=== PATIENT | male | born 1975 | race Caucasian/White ===

== ENCOUNTER 2019-01-27 00:58 | Emergency (ER) | payer MEDICAID ==
[~2019-01-27] VITALS: Ht 182.9 cm; Wt 79.4 kg
[~2019-01-27 00:58] MED LIST: ACETAMINOPHEN; ASPIRIN; CEPH500 PO; CLIN300 PO; CYCL10 PO; DOXY100 PO; DOXY100T53 PO; ERYT.5TO BOTHEYES; HYDACE5 PO; IBUPROFEN; NAPR500 PO; OXYACE5T PO; OXYACE7.5T PO; RXHYDACE PO; SULTRIDS PO
== END 2019-01-27 01:53 | disposition home or self-care (01) ==
LOC: ER 00:58
DX: S60.222A Contusion of left hand, initial encounter (principal); W22.8XXA Striking against or struck by other objects, initial encounter
CPT/HCPCS: 29125; 73130; 96372-59; 99283-25; J1885

== ENCOUNTER 2024-09-09 08:33 | Day surgery (SDC) | payer OTHER ==
[~2024-09-09] VITALS: Ht 177.8 cm; Wt 92.7 kg
[2024-09-09] VITALS (17 sets, daily range): BP systolic 98–136; BP diastolic 64–89
[~2024-09-09 08:33] MED LIST changes: +ACET500 PO; +Bupivacaine 0.5% Inj 10 ML Vial ONE; +IBUP800 PO; +LISI20 PO; +MELO7.5 PO; +propofoL 100 ML IV ONE
[2024-09-09] MEDS ORDERED: Ropivacaine 0.5% HCl/Pf 123.125 MG,EPINEPHrine HCL 0.25 MG,Ketorolac Tromethamine 15 MG... INFIL SCH (08:50)
[2024-09-09] MEDS ORDERED: Vancomycin HCL 1,000 MG in NS 250 ML IV SCH ×2 (08:50→22:00)
[2024-09-09] MEDS ORDERED: Chlorhexidine Mouth Care 15 ML UDC MT SCH (08:50)
[2024-09-09] MEDS ORDERED: Acetaminophen 500 MG Tab PO SCH ×2 (08:50→16:00)
[2024-09-09] MEDS ORDERED: OxyCODONE HCL 10 MG TABCR PO SCH ×2 (08:50)
[2024-09-09] MEDS ORDERED: Tranexamic Acid 100 ML IV SCH (08:50)
[2024-09-09] MEDS ORDERED: Lactated Ringer's 1,000 ML IV SCH ×2 (08:50→10:30)
[2024-09-09] MEDS ORDERED: CeFAZolin Sodium 2,000 MG in NS 100 ML IV SCH ×2 (08:50→19:15)
--- NOTE | 2024-09-09 09:09 | NUR ---
History, Chart, Medications and Allergies reviewed before start of procedure.pre op teaching done. friend at bedside
[2024-09-09] MEDS ORDERED: Bisacodyl 10 MG Supp PR PRN (10:25)
[2024-09-09] MEDS ORDERED: OxyCODONE HCL 5 MG TAB PO PRN ×2 (10:25→10:30)
[2024-09-09] MEDS ORDERED: DiphenhydrAMINE HCL 25 MG Cap PO PRN (10:25)
[2024-09-09] MEDS ORDERED: Promethazine HCl 25 MG Tab PO PRN (10:30)
[2024-09-09] MEDS ORDERED: HYDROmorphone HCl/Pf 1MG SYR IV PRN (10:30)
[2024-09-09] MEDS ORDERED: FLU VACC TS2024-25(6MOS UP)/PF 45 MCG/0.5 ML SYRINGE IM SCH (10:30)
[2024-09-09] MEDS ORDERED: Magnesium Hydroxide Conc 10 ML UDC PO PRN (10:30)
[2024-09-09] MEDS ORDERED: Metoclopramide HCl 5MG / ML 2ML Vial IV PRN (10:35)
[2024-09-09] MEDS ORDERED: Ondansetron HCl 2 MG / ML 2ML Vial IV PRN (10:35)
[2024-09-09] MEDS ORDERED: Vancomycin HCl 1000 MG ADDvantage ONE (10:50)
[2024-09-09] MEDS ORDERED: Dexamethasone Sod Phos 10 MG/ML 1ML VIAL ONE (11:13)
[2024-09-09] MEDS ORDERED: Ondansetron HCl 2 MG / ML 2ML Vial ONE (11:13)
[2024-09-09] MEDS ORDERED: Ketorolac Tromethamine 30mg Vial ONE (11:13)
--- NOTE | 2024-09-09 11:52 | NUR ---
09/09/24 1152 Ramila Edmondson SPINAL BLOCK COMPLETED BY DR. VALDEZ UPON ENTRY TO OR. VANCO 1GM IV STARTED PREOPERATIVELY IN DAY SURGERY.
[2024-09-09] MEDS ORDERED: Glycopyrrolate 0.2 MG/ML 5ML VIAL ONE (11:57)
[2024-09-09] MEDS ORDERED: Midazolam HCl 1MG / ML 2ML Vial ONE (12:00)
[2024-09-09] MEDS ORDERED: propofoL 20 ML IV ONE ×2 (12:32→13:00)
--- NOTE | 2024-09-09 14:48 | NUR ---
TRANSFER TO UNIT PATIENT TRANSFERRED TO UNIT FROM PACU AT APPROX 1430. PATIENT ALERT AND ORIENTED X4. COMMUNICATES NEEDS EFFECTIVELY. FOLLOWS COMMANDS APPROPRIATELY. VSS. ON ROOM AIR, SATs >90%. RR EVEN, UNLABORED. S/P R TKA - ANAND WRAP DRESSING C/D/I. DENIES PAIN. RECEIVED SPINAL - MINIMAL SENSATION TO BLE, ABLE TO MOVE TOES SOME. PPP. SMALL SNACKS PROVIDED - IVF INFUSING PER EMAR. CALL LIGHT IN REACH.
--- NOTE | 2024-09-09 16:01 | NUR ---
Pt. is awake in room and welcomes this work adjustment instructor's visit. Pt. is pleasant. Facilitated a life review/ Pt. verbalized how his francis was shaped through his experience in the [facility] system. Listen with empathy and interest. Rapport is established in the unpacking of our life experiences. Considered matters of francis and belief. Pt. displayed evidence of being encouraged and motivated to reconnect with a local francis community. Prayed with the Pt. Information about a local recovery ministry is shared with and received by the Pt. Pt. verbalized gratitude for the spiritual care visit.
--- NOTE | 2024-09-09 17:25 | NUR ---
SHIFT SUMMARY NO ACUTE CHANGES SINCE PREVIOUS DOCUMENTATION. VSS. PATIENT REMAINS ALERT AND ORIENTED X4. WORKED WITH PHYSICAL THERAPY THIS EVENING - CURRENTLY SITTING IN RECLINER CHAIR. IS A 1P FWW GB WITH MOBILITY. PAIN TOLERABLE PER EMAR AND WITH COOLING DEVICE. ANAND WRAP C/D/I - NO SHADOWING NOTED. TOLERATING PO INTAKE. IVF STOPPED. VOIDING. CALL LIGHT IN REACH. WILL CONTINUE TO MONITOR AND REPORT TO ONCOMING RN.
[2024-09-09] MEDS ORDERED: Lisinopril 20 MG Tab PO SCH (18:00)
[2024-09-09] MEDS ORDERED: Ketorolac Tromethamine 15mg Vial IV SCH (18:00)
[2024-09-09] MEDS ORDERED: Docusate Sodium 100 MG Cap PO SCH (21:00)
--- NOTE | 2024-09-10 04:24 | NUR ---
SHIFT SUMMARY NO ACUTE CHANGES OVERNIGHT. POD1 ELECTIVE RIGHT KNEE. PAIN MANAGED USING NPIS AND PER EMAR. UP TO BATHROOM WITH 1PA USING FWW. VOIDING WITHOUT DIFFICULTY. TOLERATING PO INTAKE. RIGHT KNEE WITH ANAND WRAP DRESSING, REMAINED C/D/I OVERNIGHT. RLE ELEVATED ON PILLOWS WITH CRYOTHERAPY OVERNIGHT. DANIELLE HOSE AND SCDS IN PLACE. PT ABLE TO REST DURING SHIFT. PT VOICED UNDERSTANDING OF PLAN OF CARE, DENIES QUESTIONS/CONCERNS AT THIS TIME.
[2024-09-10 04:28] VITALS: BP 145/96
[2024-09-10 05:25] LABS: BASOPHILS ABSOLUTE AUTO 0.02 K/mm3 (0.00-0.23); BASOPHILS PERCENT AUTO 0 % (0-2); EOSINOPHILS ABSOLUTE AUTO 0.01 K/mm3 (0.00-0.68); EOSINOPHILS PERCENT AUTO 0 % (0-6); Hematocrit 35.8 % (37.0-53.0); Hemoglobin 12.5 g/dL (13.5-17.5); IMMATURE GRAN ABSOLUTE AUTO 0.03 K/mm3 (0.00-0.10); IMMATURE GRAN PERCENT AUTO 0 % (0-1); LYMPHOCYTES ABSOLUTE AUTO 0.85 K/mm3 (0.84-5.20); LYMPHOCYTES PERCENT AUTO 10 % (21-46); MONOCYTES ABSOLUTE AUTO 0.73 K/mm3 (0.16-1.47); MONOCYTES PERCENT AUTO 8 % (4-13); Mean Corpuscular HGB 28.3 pg (26.0-34.0); Mean Corpuscular HGB Conc 34.9 g/dL (31.5-36.5); Mean Corpuscular Volume 81 fL (80-100); NEUTROPHILS ABSOLUTE AUTO 7.28 K/mm3 (1.96-9.15); NEUTROPHILS PERCENT AUTO 82 % (41-73); Platelet Count 265 K/mm3 (150-400); RDW Coefficient Variation 13.2 % (11.7-14.2); Red Blood Cell Count 4.42 M/mm3 (4.30-5.90); White Blood Cell Count 8.92 K/mm3 (4.00-11.30)
[2024-09-10 05:44] LABS: Calcium, Blood 8.3 mg/dL (8.5-10.1); Creatinine, Blood 1.06 mg/dL (0.60-1.20); Magnesium, Blood 2.1 mg/dL (1.6-2.4); Potassium, Blood 4.3 mmol/L (3.5-5.5)
--- NOTE | 2024-09-10 06:29 | NUR ---
DRESSING CHANGE DR. BELLAMY AT BEDSIDE. COMPLETED DRESSING CHANGE TO RIGHT KNEE. PT TOLERATED WELL.
[2024-09-10 07:43] VITALS: BP 152/96
[2024-09-10] MEDS ORDERED: Aspirin 81 MG Chew PO SCH (09:00)
[2024-09-10] MEDS ORDERED: Trimethoprim/Sulfamethoxazole DS Tab PO SCH (09:00)
[2024-09-10] MEDS ORDERED: Aspir 8181 MG PO (09:33)
[2024-09-10] MEDS ORDERED: OXAYDO5 M1 PO (09:34)
[2024-09-10] MEDS ORDERED: PROM25 PO (09:35)
[2024-09-10] MEDS ORDERED: SULTRIDS PO (09:35)
--- NOTE | 2024-09-10 10:45 | NUR ---
DISCHARGE SUMMARY PT DISCHARGE HOME TODAY VIA WHEELCHAIR TO PRIVATE AUTO. IV REMOVED, CATH INTACT. DISCHARGE INSTRUCTIONS AND PERSONAL BELONGINGS PROVIDED. PT TOLERATING PO INTAKE, DENIES N/V. AMBULATING WITH FWW. WORKED WITH THERAPY. PAIN MANAGED PER EMAR AND CRYO. PT VERBALIZED UNDERSTANDING OF INSTRUCTIONS AND DENIES NEEDS OR CONCERNS. PT OFF UNIT BY COLEEN.
[2024-09-11] MEDS ORDERED: OXAYDO5 M1 PO (11:34)
== END 2024-09-10 10:25 | disposition home or self-care (01) ==
LOC: ORSCMMR 08:33 → ORD 10:45 → SURS 14:33 → ORSCMMR 09-10 10:25
PROVIDERS: Orthopaedic Surgery
PROC: 0SRC0J9 Replacement of Right Knee Joint with Synthetic Substitute, Cemented, Open Approach (ICD-10-PCS; principal; 2024-09-09 10:45)
DX: M17.0 Bilateral primary osteoarthritis of knee (principal); I10 Essential (primary) hypertension; Z79.899 Other long term (current) drug therapy
CPT/HCPCS: 36415; 73560-RT; 80048; 83735; 85025; 97110; 97116; 97161; 97530; A9270; C1713; C1776; J0171; J0690; J0735; J1100; J1171; J1885; J2250; J2405; J2704; J2795; J3370; J7050; J7120

== ENCOUNTER 2024-09-28 09:54 | Emergency (ER) | payer OTHER ==
[~2024-09-28] VITALS: Ht 177.8 cm; Wt 83.9 kg
[~2024-09-28 09:54] MED LIST changes: +Aspir 8181 MG PO; -Bupivacaine 0.5% Inj 10 ML Vial ONE; +OXAYDO5 M1 PO; +PROM25 PO; -propofoL 100 ML IV ONE
[2024-09-28 10:44] VITALS: BP 159/115
[2024-09-28] MEDS ORDERED: HYDROmorphone HCl/Pf 1MG SYR IM ONE (10:50)
[2024-09-28] MEDS ORDERED: IBU800 MG PO (12:21)
== END 2024-09-28 12:24 | disposition home or self-care (01) ==
LOC: ER 09:54
DX: M25.561 Pain in right knee (principal); Z79.899 Other long term (current) drug therapy; Z79.82 Long term (current) use of aspirin
CPT/HCPCS: 73562-RT; 93971; 96372; 99284-25; J1171

== ENCOUNTER 2024-10-20 02:45 | Emergency (ER) | payer OTHER ==
[~2024-10-20] VITALS: Ht 180.3 cm; Wt 88.5 kg
[~2024-10-20 02:45] MED LIST changes: +IBU800 MG PO
[2024-10-20] MEDS ORDERED: Ondansetron HCl 2 MG / ML 2ML Vial IV PRN (03:05)
[2024-10-20 03:14] LABS: BASOPHILS ABSOLUTE AUTO 0.07 K/mm3 (0.00-0.23); BASOPHILS PERCENT AUTO 1 % (0-2); EOSINOPHILS ABSOLUTE AUTO 0.04 K/mm3 (0.00-0.68); EOSINOPHILS PERCENT AUTO 0 % (0-6); Hematocrit 39.8 % (37.0-53.0); Hemoglobin 13.8 g/dL (13.5-17.5); IMMATURE GRAN ABSOLUTE AUTO 0.04 K/mm3 (0.00-0.10); IMMATURE GRAN PERCENT AUTO 0 % (0-1); LYMPHOCYTES ABSOLUTE AUTO 1.05 K/mm3 (0.84-5.20); LYMPHOCYTES PERCENT AUTO 11 % (21-46); MONOCYTES ABSOLUTE AUTO 0.65 K/mm3 (0.16-1.47); MONOCYTES PERCENT AUTO 7 % (4-13); Mean Corpuscular HGB 28.3 pg (26.0-34.0); Mean Corpuscular HGB Conc 34.7 g/dL (31.5-36.5); Mean Corpuscular Volume 82 fL (80-100); Mean Platelet Volume 8.5 fL (9.1-12.4); NEUTROPHILS ABSOLUTE AUTO 7.42 K/mm3 (1.96-9.15); NEUTROPHILS PERCENT AUTO 80 % (41-73); Platelet Count 336 K/mm3 (150-400); RDW Coefficient Variation 13.2 % (11.7-14.2); RDW Standard Deviation 39.6 fL (35.1-46.3); Red Blood Cell Count 4.87 M/mm3 (4.30-5.90); White Blood Cell Count 9.27 K/mm3 (4.00-11.30)
[2024-10-20 03:42] LABS: Albumin, Blood 3.9 g/dL (3.4-5.0); Albumin/Globulin Ratio 1.1 (0.8-1.8); Bilirubin, Total 0.4 mg/dL (0.1-1.0); Bun/Creatinine Ratio 16.3 (12.0-20.0); Calcium, Blood 9.5 mg/dL (8.5-10.1); Creatinine, Blood 1.35 mg/dL (0.60-1.20); Globulin, Blood 3.6 g/dL (2.2-4.0); Total Protein, Blood 7.5 g/dL (6.4-8.2)
[2024-10-20] MEDS ORDERED: FentaNYL Citrate 50 MCG/ML 2 ML Injection IV ONE (04:30)
[2024-10-20] MEDS ORDERED: NS 1,000 ML IV SCH (05:00)
[2024-10-20 05:39] LABS: Source, Urine Clean Catch
[2024-10-20 05:45] VITALS: BP 161/99
[2024-10-20 05:45] LABS: Bilirubin, Urine Neg (Neg); Blood, Urine 3+ (Neg); Glucose Qualitative, Urine Neg (Neg); Ketones, Urine 2+ (Neg); Leukocyte Esterase, Urine Neg (Neg); Nitrite, Urine Neg (Neg); Protein, Urine 1+ (Neg); Specific Gravity, Urine 1.005 (1.003-1.022); Urobilinogen, Urine NORM (Normal)
[2024-10-20 05:58] LABS: Appearance, Urine Clear (Clear); Color, Urine Yellow (P-Yellow)
[2024-10-20 05:59] LABS: Amorphous Light (0-Heavy); Bacteria Few /hpf; Squamous Epithelial Cells Rare /hpf (Few); White Blood Cells, Urine 0-2 /hpf (0-5)
[2024-10-20] MEDS ORDERED: RX Prepack 2 Sprays Naloxone HCL 4 MG/SPRAY UD ONE (06:20)
[2024-10-20] MEDS ORDERED: Ketorolac Tromethamine 30mg Vial IV ONE (06:20)
[2024-10-20] MEDS ORDERED: RX Prepack 6 Tabs Oxycodone 5mg UD ONE (06:20)
[2024-10-20] MEDS ORDERED: Tamsulosin HCl 0.4 MG Cap PO ONE (06:20)
[2024-10-20] MEDS ORDERED: RX Prepack 2 Tabs Ondansetron ODT 4MG UD ONE (06:20)
[2024-10-20] MEDS ORDERED: HYDR1TAB94 PO (06:27)
[2024-10-20] MEDS ORDERED: TAMS.4ER PO (06:27)
== END 2024-10-20 07:01 | disposition home or self-care (01) ==
LOC: ER 02:45
PROVIDERS: Emergency Medicine
DX: N13.2 Hydronephrosis with renal and ureteral calculous obstruction (principal); Z79.82 Long term (current) use of aspirin; Z79.899 Other long term (current) drug therapy
CPT/HCPCS: 74177; 80053; 81001; 83690; 85025; 93005; 93010; 96374-59; 96375; 99284-25; A9270; J1885; J2405; J3010; J7030; Q9967

== ENCOUNTER 2025-03-21 23:28 | Emergency (ER) | payer OTHER ==
[~2025-03-21] VITALS: Ht 180.3 cm; Wt 95.2 kg
[~2025-03-21 23:28] MED LIST changes: +ASPI81CH PO; +BACTRIM DS TAB1 EAC1 PO; +HYDR1TAB94 PO; +TAMS.4ER PO
[2025-03-22 04:37] VITALS: BP 143/94
[2025-03-22] MEDS ORDERED: HYDROmorphone HCl/Pf 1MG SYR IV ONE (05:45)
[2025-03-22] MEDS ORDERED: Trimethoprim/Sulfamethoxazole DS Tab PO ONE (05:45)
[2025-03-22] MEDS ORDERED: Cephalexin Monohydrate 500 MG Cap PO ONE (05:45)
[2025-03-22] MEDS ORDERED: SULTRIDS PO (05:48)
[2025-03-22] MEDS ORDERED: CEPH500 PO (05:48)
[2025-03-22] MEDS ORDERED: RX Prepack 6 Tabs Oxycodone 5mg UD ONE (05:50)
== END 2025-03-22 04:11 | disposition home or self-care (01) ==
LOC: ER 23:28
DX: M25.562 Pain in left knee (principal); Z96.653 Presence of artificial knee joint, bilateral; Z79.82 Long term (current) use of aspirin; Z79.899 Other long term (current) drug therapy
CPT/HCPCS: 99283; A9270